=== PATIENT | male | born 1960 | race Caucasian/White ===

== ENCOUNTER 2021-01-26 16:54 | Day surgery (SDC) | payer OTHER ==
[2021-01-26] MEDS ORDERED: Depo-Medrol 40 MG/ML IM ONE (16:55)
[2021-01-26] MEDS ORDERED: BUPIVACAINE 0.5% VIAL IJ ONE (16:55)
[2021-01-26] MEDS ORDERED: Xylocaine 1% Vial 30 ML PF IJ ONE (16:55)
--- NOTE | 2021-01-26 19:08 | XRAY ---
Indication: Right intercostal nerve block. Intraoperative fluoroscopy provided for 21 seconds. 2 digital spot images submitted for interpretation demonstrates needle tip projecting over inferior unknown right rib. Correlate with intraoperative findings/report.
--- NOTE | 2021-01-27 08:40 | XRAY ---
21 seconds fluoroscopy time in surgery for right intercostal nerve block.
== END 2021-01-26 18:30 | disposition home or self-care (01) ==
LOC: SDC-PAIN 16:54
PROVIDERS: ATTEND Psychiatry & Neurology Pain Medicine
DX: R07.81 Pleurodynia (principal); E11.9 Type 2 diabetes mellitus without complications; Z79.899 Other long term (current) drug therapy
CPT/HCPCS: 64420; 64421; 71100; 77002; 82947; J1030; J2001

== ENCOUNTER 2021-03-30 14:56 | Day surgery (SDC) | payer OTHER ==
[2021-03-30] MEDS ORDERED: BUPIVACAINE 0.5% VIAL IJ ONE (14:57)
[2021-03-30] MEDS ORDERED: Xylocaine 1% Vial 30 ML PF IJ ONE (14:57)
[2021-03-30] MEDS ORDERED: Depo-Medrol 40 MG/ML IM ONE (14:57)
--- NOTE | 2021-03-30 19:25 | XRAY ---
Indication: Right intercostal nerve block. Intraoperative fluoroscopy provided for 29 seconds. 3 digital spot image submitted for interpretation demonstrates needle tip projecting over inferior unknown right rib. Correlate with intraoperative findings/report.
--- NOTE | 2021-03-31 11:54 | XRAY ---
29 seconds fluoroscopy time in surgery for right intercostal nerve block.
== END 2021-03-30 18:39 | disposition home or self-care (01) ==
LOC: SDC-PAIN 14:56
PROVIDERS: ATTEND Psychiatry & Neurology Pain Medicine
DX: R07.81 Pleurodynia (principal); Z79.891 Long term (current) use of opiate analgesic; Z72.0 Tobacco use; E11.8 Type 2 diabetes mellitus with unspecified complications; Z79.84 Long term (current) use of oral hypoglycemic drugs
CPT/HCPCS: 64420; 64421; 71100; 77002; 82947; J1030; J2001

== ENCOUNTER 2022-01-18 06:57 | Day surgery (SDC) | payer OTHER ==
[2022-01-18] MEDS ORDERED: Depo-Medrol 40 MG/ML IM ONE (06:58)
[2022-01-18] MEDS ORDERED: BUPIVACAINE 0.5% VIAL IJ ONE (06:58)
--- NOTE | 2022-01-18 10:34 | XRAY ---
Indication: Right intercostal nerve block. Intraoperative fluoroscopy provided for 27 seconds. 4 digital spot images submitted for interpretation demonstrates needle tip projecting over the anterior right lower rib intercostal spaces. Correlate with intraoperative findings/report.
--- NOTE | 2022-01-18 10:52 | XRAY ---
27 seconds of fluoroscopy was used in surgery for a right intercostal nerve block.
== END 2022-01-18 08:50 | disposition home or self-care (01) ==
LOC: SDC-PAIN 06:57
PROVIDERS: ATTEND Psychiatry & Neurology Pain Medicine
DX: G58.0 Intercostal neuropathy (principal); E11.9 Type 2 diabetes mellitus without complications; Z79.899 Other long term (current) drug therapy
CPT/HCPCS: 64420; 64421; 71100; 77002; 82947; J1030

== ENCOUNTER 2022-06-14 07:38 | Day surgery (SDC) | payer OTHER ==
[2022-06-14] MEDS ORDERED: LIDOCAINE HCL 2% 100 MG/5 ML IJ ONE (07:39)
[2022-06-14] MEDS ORDERED: Reglan 10 MG/2 ML ONE (08:09)
[2022-06-14] MEDS ORDERED: Pepcid 20 MG VIAL IV ONE (08:09)
[2022-06-14] MEDS ORDERED: DIPRIVAN 200 MG/20 ML IV ONE (09:15)
--- NOTE | 2022-06-14 10:34 | XRAY ---
Indication: Bilateral L4-S1 MBB. Intraoperative fluoroscopy provided for 11 seconds. Single digital spot image submitted for interpretation demonstrates posterior needle tips projecting over the expected left and right L4-S1 nerve roots. Correlate with intraoperative findings/report.
--- NOTE | 2022-06-14 10:38 | XRAY ---
11 seconds of fluoroscopy was used in surgery for a bilateral L4-S1 MBB.
[2022-06-14] MEDS ORDERED: Lactated Ringers 1,000 ML IV ONE (13:57)
== END 2022-06-14 09:45 | disposition home or self-care (01) ==
LOC: SDC-PAIN 07:38
PROVIDERS: ATTEND Psychiatry & Neurology Pain Medicine
DX: M47.816 Spondylosis without myelopathy or radiculopathy, lumbar region (principal); E11.9 Type 2 diabetes mellitus without complications; Z79.899 Other long term (current) drug therapy
CPT/HCPCS: 64493; 64494; 72020; 77002; 82947; J2704

== ENCOUNTER 2022-07-12 07:39 | Day surgery (SDC) | payer OTHER ==
[2022-07-12] MEDS ORDERED: BUPIVACAINE 0.5% VIAL IJ ONE (07:40)
[2022-07-12] MEDS ORDERED: DIPRIVAN 200 MG/20 ML IV ONE (10:34)
--- NOTE | 2022-07-12 12:13 | XRAY ---
Indication: Bilateral L4-S1 MBB. Intraoperative fluoroscopy provided for 10 seconds. Single digital spot image submitted for interpretation demonstrates posterior needle tips projecting over the expected left and right L4-S1 nerve roots. Correlate with intraoperative findings/report.
--- NOTE | 2022-07-12 12:37 | XRAY ---
10 seconds of fluoroscopy was used in surgery for a bilateral L4-S1 MBB.
[2022-07-12] MEDS ORDERED: Lactated Ringers 1,000 ML IV ONE (14:14)
== END 2022-07-12 10:53 | disposition home or self-care (01) ==
LOC: SDC-PAIN 07:39
PROVIDERS: ATTEND Psychiatry & Neurology Pain Medicine
DX: M47.816 Spondylosis without myelopathy or radiculopathy, lumbar region (principal); E11.9 Type 2 diabetes mellitus without complications; Z79.899 Other long term (current) drug therapy
CPT/HCPCS: 64493; 64494; 72020; 77002; 82947; J2704

== ENCOUNTER 2022-08-02 06:49 | Day surgery (SDC) | payer OTHER ==
[2022-08-02] MEDS ORDERED: LIDOCAINE HCL 1% 50 MG/5 ML VL PF IJ ONE (06:50)
[2022-08-02] MEDS ORDERED: BUPIVACAINE 0.5% VIAL IJ ONE (06:50)
[2022-08-02] MEDS ORDERED: Depo-Medrol 40 MG/ML IM ONE (06:50)
[2022-08-02] MEDS ORDERED: DIPRIVAN 200 MG/20 ML IV ONE (08:01)
[2022-08-02] MEDS ORDERED: PROVENTIL 2.5 MG/3 ML NEB IH ONE (08:30)
[2022-08-02 08:44] VITALS: PULSE 94; O2SAT 91
[2022-08-02] MEDS ORDERED: Lactated Ringers 1,000 ML IV ONE (08:53)
--- NOTE | 2022-08-02 09:32 | XRAY ---
27 seconds of fluoroscopy was used in surgery for a left L4-S1 RFA.
--- NOTE | 2022-08-02 09:32 | XRAY ---
Indication: Left L4-S1 RFA. Intraoperative fluoroscopy provided for 27 seconds. 4 digital spot image submitted for interpretation demonstrate posterior needle tips projecting over the expected left L4-S1 nerve roots. Correlate with intraoperative findings/report.
== END 2022-08-02 08:45 | disposition home or self-care (01) ==
LOC: SDC-PAIN 06:49
PROVIDERS: ATTEND Psychiatry & Neurology Pain Medicine
DX: M47.816 Spondylosis without myelopathy or radiculopathy, lumbar region (principal); E11.9 Type 2 diabetes mellitus without complications; Z79.899 Other long term (current) drug therapy
CPT/HCPCS: 64635; 64636; 72100; 77002; 82947; 94640; J1030; J2001; J2704; J7609; A9270-GY

== ENCOUNTER 2022-08-09 06:50 | Day surgery (SDC) | payer OTHER ==
[2022-08-09] MEDS ORDERED: LIDOCAINE HCL 1% 50 MG/5 ML VL PF IJ ONE (06:51)
[2022-08-09] MEDS ORDERED: BUPIVACAINE 0.5% VIAL IJ ONE (06:51)
[2022-08-09] MEDS ORDERED: Depo-Medrol 40 MG/ML IM ONE (06:51)
[2022-08-09] MEDS ORDERED: DIPRIVAN 200 MG/20 ML IV ONE (07:57)
--- NOTE | 2022-08-09 10:20 | XRAY ---
Indication: Right L4-S1 RFA. Intraoperative fluoroscopy provided for 30 seconds. 3 digital spot image submitted for interpretation demonstrates posterior needle tips projecting over the expected right L4-S1 nerve roots. Correlate with intraoperative findings/report.
--- NOTE | 2022-08-09 12:44 | XRAY ---
30 seconds of fluoroscopy was uses in surgery for a right L4-S1 RFA.
[2022-08-09] MEDS ORDERED: Lactated Ringers 1,000 ML IV ONE (13:11)
== END 2022-08-09 08:50 | disposition home or self-care (01) ==
LOC: SDC-PAIN 06:50
PROVIDERS: ATTEND Psychiatry & Neurology Pain Medicine
DX: M47.816 Spondylosis without myelopathy or radiculopathy, lumbar region (principal); E11.9 Type 2 diabetes mellitus without complications; Z79.899 Other long term (current) drug therapy
CPT/HCPCS: 64635; 64636; 72100; 77002; 82947; J1030; J2001; J2704

== ENCOUNTER 2024-02-13 07:03 | Day surgery (SDC) | payer MEDICARE, OTHER ==
[2024-02-13] MEDS ORDERED: BUPIVACAINE 0.5% VIAL IJ ONE (07:04)
[2024-02-13] MEDS ORDERED: Depo-Medrol 40 MG/ML IM ONE (07:04)
[2024-02-13] MEDS ORDERED: LIDOCAINE HCL 1% AMPUL 5 ML IJ ONE (07:04)
[2024-02-13] MEDS ORDERED: DIPRIVAN 200 MG/20 ML IV ONE (09:12)
[2024-02-13] MEDS ORDERED: Lactated Ringers 1,000 ML IV ONE (09:52)
--- NOTE | 2024-02-13 10:33 | XRAY ---
Indication: Right L4-S1 RFA. Intraoperative fluoroscopy was provided for 19 seconds. 3 digital spot images submitted for interpretation demonstrates posterior needle tips projecting over the expected right L4-S1 nerve roots. Correlate with intraoperative findings/report.
--- NOTE | 2024-02-13 11:33 | XRAY ---
19 seconds of fluoroscopy was used in surgery for a right L4-S1 RFA.
== END 2024-02-13 09:38 | disposition home or self-care (01) ==
LOC: SDC-PAIN 07:03
PROVIDERS: ATTEND Psychiatry & Neurology Pain Medicine
DX: M47.816 Spondylosis without myelopathy or radiculopathy, lumbar region (principal); E11.9 Type 2 diabetes mellitus without complications
CPT/HCPCS: 64635; 64636; 72100; 77002; 82947; J2704

== ENCOUNTER 2024-02-27 06:53 | Day surgery (SDC) | payer MEDICARE, OTHER ==
[2024-02-27] MEDS ORDERED: LIDOCAINE HCL 1% AMPUL 5 ML IJ ONE (06:54)
[2024-02-27] MEDS ORDERED: BUPIVACAINE 0.5% VIAL IJ ONE (06:54)
[2024-02-27] MEDS ORDERED: Depo-Medrol 40 MG/ML IM ONE (06:54)
[2024-02-27] MEDS ORDERED: DIPRIVAN 200 MG/20 ML IV ONE (08:13)
--- NOTE | 2024-02-27 10:08 | XRAY ---
Indication: Left L4-S1 RFA. Intraoperative fluoroscopy provided for 18 seconds. 3 digital spot images submitted for interpretation demonstrates posterior needle tips projecting over the expected left L4-S1 nerve roots. Correlate with intraoperative findings/report.
--- NOTE | 2024-02-27 10:42 | XRAY ---
18 seconds of fluoroscopy was used in surgery for a left L4-S1 RFA.
== END 2024-02-27 08:46 | disposition home or self-care (01) ==
LOC: SDC-PAIN 06:53
PROVIDERS: ATTEND Psychiatry & Neurology Pain Medicine
DX: M47.817 Spondylosis without myelopathy or radiculopathy, lumbosacral region (principal); E11.9 Type 2 diabetes mellitus without complications
CPT/HCPCS: 64635; 64636; 72100; 77002; 82947; J2704